=== PATIENT | male | born 1995 | race Caucasian/White ===

== ENCOUNTER 2017-09-16 13:45 | Emergency (ER) | payer BC ==
--- NOTE | 2017-09-16 13:47 | ER Report ---
History and Physical Time Seen By MD: 13:47 HPI/ROS Otherwise healthy 21-year-old male who is currently in [place] working but is originally from [place]. He went to the local urgent care today complaining of a cough and right-sided pleuritic chest pain. He had a positive d-dimer, and was sent to the emergency department for a CTA of the chest to rule out PE. Of note he was working in [place] prior to coming to [place] so has been acclimated to the altitude. He states he does have allergies, and has been coughing for the past week or so. He has had a history of pleurisy. He denies any other complaints. Remainder of the 14 system rev: Yes Allergies: Coded Allergies: Penicillins (Verified Allergy, Severe, 09/16/17) HIVES morphine (Verified Allergy, Severe, 09/16/17) HIVES Home Meds No Active Prescriptions or Reported Meds Reviewed Nurses Notes: Yes Old Medical Records Reviewed: Yes Hx Smoking: No Exposure to Second Hand Smoke?: No Hx Substance Use Disorder: No Hx Alcohol Use: No Constitutional Vital Sign - Last 24 Hours 09/16/17 09/16/17 09/16/17 09/16/17 13:48 13:49 14:00 14:15 Temp 98.8 Pulse 101 102 100 Resp 18 10 29 B/P (MAP) 156/77 (103) 156/77 ???/??? (1664) Pulse Ox 92 92 92 O2 Delivery Room Air 09/16/17 09/16/17 09/16/17 09/16/17 14:29 14:30 14:45 14:50 Pulse 101 105 102 Resp 38 32 31 B/P (MAP) 151/88 (109) Pulse Ox 92 92 95 09/16/17 09/16/17 09/16/17 09/16/17 15:00 15:30 15:35 16:00 Pulse ??? B/P (MAP) 131/90 (104) ???/??? (1664) ???/??? (1664) 09/16/17 09/16/17 09/16/17 09/16/17 17:30 17:41 17:50 19:05 Pulse 100 102 Resp 16 B/P (MAP) ???/??? (1665) 139/99 (112) Pulse Ox 94 Physical Exam General Appearance: The patient is alert, has no immediate need for airway protection and no current signs of toxicity. Eyes: Pupils equal and round no injection. Respiratory: Chest is non tender, lungs are clear to auscultation. Cardiac: regular rate and rhythm Gastrointestinal: Abdomen is soft and non tender, no masses, bowel sounds normal. Extremities have full range of motion and are non tender. Skin: No rashes or lesions. DIFFERENTIAL DIAGNOSIS: After history and physical exam differential diagnosis was considered for shortness of breath including but not limited to pulmonary infectious process, COPD, asthma, pulmonary embolus and congestive heart failure. Medical Decision Making EKG/Imaging Imaging Results: CTA scan of the chest was obtained. The results of the study are no PE and no pneumonia The study was read by the radiologist. I viewed the images myself on the PACS system. ED Course/Re-evaluation Clinical Indication for ER IV: IV Access ED Course Otherwise healthy 21-year-old male in town working and went to the urgent care with a cough and pleuritic chest pain. He has no PE on CTA, and no evidence of infiltrate. He does have some mild right-sided atelectasis. Because symptoms are consistent with pleurisy which is likely from coughing from his viral URI. He was given a neb treatment, Decadron and Toradol in the emergency department with some improvement. We'll discharge him with an albuterol inhaler, and encouraged him to take NSAIDs for his pleuritic chest pain. Decision to Disposition Date: September 16, 2017 Decision to Disposition Time: 19:27 Depart Departure Latest Vital Signs Vital Signs Date Time Temp Pulse Resp B/P (MAP) Pulse Ox O2 Delivery O2 Flow Rate FiO2 09/16/17 19:05 102 16 09/16/17 17:50 94 09/16/17 17:41 139/99 (112) 09/16/17 13:49 98.8 Room Air Impression: Primary Impression: Pleurisy Condition: Improved Disposition: HOME OR SELF-CARE New Scripts No Active Prescriptions or Reported Meds Patient Instructions: Pleurisy (ED) QUAN HAAS MD September 16, 2017 13:47
[2017-09-16] MEDS ORDERED: IOPAMIDOL 76% 100 ML INFUS BTL 100 ML ONE (15:32)
--- NOTE | 2017-09-16 17:27 | EKG ---
[place] [facility] [place] AIDA SCHWARTZ : [id number] MR: [id number] V: [id number] EXAM DATE: ORDERING PHYSICIAN: QUAN HAAS TECHNOLOGIST: ADRIANNA Test Reason : SOB Blood Pressure : / mmHG Vent. Rate : 099 BPM Atrial Rate : 099 BPM P-R Int : 156 ms QRS Dur : 086 ms QT Int : 350 ms P-R-T Axes : 023 013 024 degrees QTc Int : 449 ms Sinus rhythm with occasional premature ventricular complexes Otherwise normal ECG No previous ECGs available Confirmed by FATUMA PAT ([id number]) on 09/17/2017 6:41:16 AM Referred By: WALDO Confirmed By:FATUMA PAT
--- NOTE | 2017-09-16 17:57 | RADIOLOGY IMAGING REPORT ---
[place] [facility] [place] NAME: Griffin Gomez : 1995 MR: [id number] V: [id number] EXAM DATE: ORDERING PHYSICIAN: QUAN HAAS TECHNOLOGIST: Location: [facility] Patient: Griffin Gomez : 1995 Visit/Account:[id number] Date of Sevice: 09/16/2017 EXAMINATION: CT CHEST PULMONARY ANGIOGRAM COMPARISON: None available HISTORY: Chest pain and elevated d-dimer. PROCEDURE: Pulmonary arterial phase imaging of the chest with 100 mL intravenous Isovue 370. Reconstr uction of the source data set includes multiplanar 2D in the sagittal and coronal planes, and 3D emily nstructed coronal slab MIP series. One of the following dose optimization techniques was utilized in the performance of this exam: Autom ated exposure control; adjustment of the mA and/or kV according to the patient's size; or use of an i terative reconstruction technique. Specific details can be referenced in the facility's radiology C T exam operational policy. FINDINGS: Pulmonary vasculature: There is adequate contrast opacification of the pulmonary arterial system. No pulmonary embolism. Main pulmonary artery size is normal. Cardiac and mediastinum: Cardiac chamber size is normal. No pericardial effusion. No thoracic aortic aneurysm or dissection. No thoracic lymph node enlargement. Lungs and pleura: Right hemidiaphragm elevation with lung base atelectasis. No consolidation is other garrett identified. No pneumothorax or edema. Trace right pleural effusion. Airways: Negative. Upper abdomen: No evidence of acute disease within the visualized upper abdomen. Osseous structures: Lower thoracic spine degenerative change with mild exaggeration of the lower thor acic kyphosis. No acute findings. IMPRESSION: 1. No pulmonary embolism. 2. Right hemidiaphragm elevation and lung base atelectasis. 3. Trace right pleural effusion. Report Dictated By: Erik Hayden MD at 09/16/2017 5:44 PM Report E-Signed By: Erik Hayden MD at 09/16/2017 5:53 PM WSN:[id number]
[2017-09-16 19:00] VITALS: BP 154/80
[2017-09-16] MEDS ORDERED: ALBUTEROL/IPRATROPIUM 3 ML NEB NEB ONE (19:00)
[2017-09-16] MEDS ORDERED: DEXAMETHASONE SOD PHOS 10MG/ML IVP ONE (19:00)
[2017-09-16] MEDS ORDERED: KETOROLAC 30 MG/ML VIAL IVP ONE (19:00)
[2017-09-16] MEDS ORDERED: diphenhydrAMINE 50 MG/ML VIAL ONE (19:06)
[2017-09-16] MEDS ORDERED: ALBUTEROL SULFATE 90 MCG/ACT 8.5 GM HNH INH STA (19:12)
== END 2017-09-16 19:37 | disposition home or self-care (01) ==
LOC: ER 13:54
DX: R09.1 Pleurisy (principal)
CPT/HCPCS: 71275; 93005; 94640; 96374; 96375; 99284; J1100; J1885; J7620; Q9967

== ENCOUNTER → 2017-09-16 | Outpatient (REF) | payer BC ==
[2017-09-16 12:31] LABS: PLATELET COUNT, AUTOMATED 278 K/uL (150-450)
== END ==
LOC: ZZSENDIN 12:22
PROVIDERS: ATTEND Physician Assistant Medical
DX: R07.9 Chest pain, unspecified (principal)
CPT/HCPCS: 82040; 82247; 82310; 82374; 82435; 82565; 82947; 84075; 84132; 84155; 84295; 84450; 84460; 84484; 84520; 85025; 85379